=== PATIENT | female | born 1940 | race Caucasian/White ===

== ENCOUNTER 2023-12-30 14:19 | Observation (INO) | payer MEDICARE ==
[~2023-12-30] VITALS: Ht 147.3 cm; Wt 54.4 kg
[2023-12-30] MEDS ORDERED: PRAV80TA2 PO (14:39)
[2023-12-30] MEDS ORDERED: MONT10TA97 PO (14:39)
[2023-12-30] MEDS ORDERED: ESOM20CA2 PO (14:39)
[2023-12-30] MEDS ORDERED: LISI5TAB11 PO (14:39)
[2023-12-30] MEDS ORDERED: GABA-282 PO (14:39)
[2023-12-30] MEDS ORDERED: HYDR-3490 PO (14:39)
[2023-12-30] MEDS ORDERED: MELO15TA28 PO (14:39)
[2023-12-30] MEDS ORDERED: VERA240T64 PO (14:39)
[2023-12-30] MEDS ORDERED: GABA-1171 PO (14:39)
[2023-12-30] MEDS ORDERED: LEVO75TA4 PO (14:39)
[2023-12-30] MEDS ORDERED: BUDE10.7 INH (14:43)
[2023-12-30] MEDS: IPRATROPIUM 0.5MG/ALBUTEROL 2.5MG INH SOL UD 3ML (DUONEB) NEB ONE (15:34)
[2023-12-30] MEDS: NS 500 ML IV ONE (16:30)
[2023-12-30 16:32] LABS: BASO # 0.1 10^3/uL (0.0-0.2); BASO % 0.3 % (0.0-1.0); EOS # 0.1 10^3/uL (0.0-0.5); EOS % 0.7 % (0.0-3.0); HEMATOCRIT 34.6 % (36.0-47.0); HEMOGLOBIN 11.6 g/dl (12.0-15.5); LYMPH # 2.2 10^3/uL (1.5-5.0); LYMPH % 14.9 % (24.0-44.0); MEAN CORPUSCULAR HGB CONC 33.5 g/dl (32.0-36.5); MEAN CORPUSCULAR VOLUME 89.4 fl (80.0-96.0); MONO # 2.3 10^3/uL (0.0-0.8); MONO % 15.2 % (2.0-8.0); NEUTROPHILS # 10.1 10^3/uL (1.5-8.5); NEUTROPHILS % 67.8 % (36.0-66.0); PLATELET COUNT, AUTOMATED 807 10^3/uL (150-450); RED BLOOD COUNT 3.87 10^6/uL (4.00-5.40); WHITE BLOOD COUNT 14.9 10^3/uL (4.0-10.0)
[2023-12-30 16:57] LABS: CK-MB VALUE MASS < 1.0 NG/ML (<3.6)
[2023-12-30 16:58] LABS: CPK CREATINE PHOSPHOKINASE 48 U/L (34-145); MB/CK RELATIVE INDEX 2.08 (< OR =4)
[2023-12-30 16:59] LABS: ALKALINE PHOSPHATASE 44 U/L (46-116); ALT/SGPT 23 U/L (7.0-40); AST/SGOT 17 U/L (<34); BILIRUBIN,DIRECT 0.1 MG/DL (<0.4); BILIRUBIN,TOTAL 0.4 MG/DL (0.3-1.2); BLOOD UREA NITROGEN 29 MG/DL (9-23); CALCIUM LEVEL 9.7 MG/DL (8.3-10.6); CARBON DIOXIDE LEVEL 28 MMOL/L (20-31); CHLORIDE LEVEL 98 MMOL/L (98-107); CREATININE FOR GFR 1.37 MG/DL (0.55-1.30); GLOMERULAR FILTRATION RATE 39.3 (>32); GLUCOSE, FASTING 83 MG/DL (74-106); POTASSIUM SERUM 4.4 MMOL/L (3.5-5.1); SODIUM LEVEL 133 MMOL/L (136-145); TOTAL PROTEIN 5.8 G/DL (5.7-8.2)
[2023-12-30] MEDS ORDERED: ISOVUE-370 76% 100ML VIAL As Ordered ONE (17:33)
[2023-12-30] MEDS ORDERED: HYDR200T46 PO (23:07)
[2023-12-30] MEDS ORDERED: CALC500C16 PO (23:07)
[2023-12-30] MEDS ORDERED: ONETAB PO (23:07)
[2023-12-30] MEDS ORDERED: CYCL1DRO10 OU (23:07)
[2023-12-30] MEDS ORDERED: VITA250C5 PO (23:07)
[2023-12-30] MEDS ORDERED: CVS1CHW13 PO (23:07)
[2023-12-30] MEDS ORDERED: BIOT1CAP2 PO (23:07)
[2023-12-30] MEDS ORDERED: STOO100C30 PO (23:07)
[2023-12-30] MEDS ORDERED: PROBCAP14 PO (23:07)
[2023-12-30] MEDS ORDERED: ASPI81TA26 PO (23:07)
[2023-12-30] MEDS ORDERED: POLY17PO18 PO (23:07)
[2023-12-30] MEDS ORDERED: ALEN70TA82 PO (23:07)
[2023-12-30] MEDS ORDERED: HOME MED LIST COMPLETE! XX SCH (23:10)
[2023-12-31] MEDS ORDERED: ACETAMINOPHEN TAB 650MG DOSE (2X325MG) PO PRN (00:10)
[2023-12-31] MEDS ORDERED: ALBUTEROL SULFATE 2.5MG/0.5ML INH NEB SOLN NEB PRN (00:10)
[2023-12-31] MEDS ORDERED: MAALOX 30 ML SUSP *UDC PO PRN (00:10)
[2023-12-31] MEDS ORDERED: MOM 30ML SUSPENSION UDC PO PRN (00:10)
[2023-12-31] MEDS ORDERED: MIRALAX *UNIT DOSE* 17GM PACKET PO PRN (00:10)
[2023-12-31] MEDS ORDERED: PILL CUTTER 1 EACH XX PRN (00:35)
[2023-12-31 00:56] VITALS: BP 169/89; TEMP 97.3; O2SAT 94
[2023-12-31 00:56] LABS: PROCALCITONIN 0.08 ng/ml
[2023-12-31] MEDS: IPRATROPIUM 0.5MG/ALBUTEROL 2.5MG INH SOL UD 3ML (DUONEB) NEB SCH (01:55)
[2023-12-31] MEDS: LR 1,000 ML IV SCH (02:58)
[2023-12-31] MEDS: LEVOTHYROXINE 75MCG TABLET (0.075MG) PO SCH (05:26)
[2023-12-31 06:00] VITALS: BP 157/77; TEMP 97.4; O2SAT 97
[2023-12-31 07:29] LABS: INR 1.08; PARTIAL THROMBOPLASTIN TIME 27.2 SECONDS (24.8-34.2); PROTHROMBIN TIME 13.6 SECONDS (12.5-14.5)
[2023-12-31] MEDS: SYMBICORT 160/4.5MCG INHALER 6GM INH SCH (07:50)
[2023-12-31] MEDS: CALCIUM CARBONATE 500 MG CHEW U/D PO SCH (08:56)
[2023-12-31] MEDS: MELOXICAM (MOBIC) 7.5 MG TAB PO SCH (08:56)
[2023-12-31] MEDS: HYDROXYCHLOROQUINE 200 MG TAB PO SCH (08:56)
[2023-12-31] MEDS: DOCUSATE SODIUM 100MG CAPSULE PO SCH (08:56)
[2023-12-31] MEDS: PRAVASTATIN 20 MG TAB PO SCH (08:57)
[2023-12-31] MEDS: predniSONE 20 MG TAB PO SCH (08:57)
[2023-12-31] MEDS: MONTELUKAST 10 MG TAB PO SCH (08:57)
[2023-12-31] MEDS: ASPIRIN 81MG ENTERIC TABLET PO SCH (08:57)
[2023-12-31] MEDS: PANTOPRAZOLE 40MG TAB (PROTONIX) PO SCH (08:57)
[2023-12-31] MEDS: lisinopriL 5 MG TAB PO SCH (08:57)
[2023-12-31] MEDS: VERAPAMIL 120MG SR TAB PO SCH (08:58)
[2023-12-31] MEDS: HEPARIN SOD (PORCINE) 5000UNITS/ML 1ML VIAL/SYRINGE SC SCH (08:59)
[2023-12-31 09:00] VITALS: O2SAT 92
[2023-12-31] MEDS ORDERED: CYCLOSPORINE 0.05% OU SCH (09:00)
[2023-12-31 10:52] LABS: BASO # 0.1 10^3/uL (0.0-0.2); BASO % 0.7 % (0.0-1.0); EOS # 0.3 10^3/uL (0.0-0.5); EOS % 2.7 % (0.0-3.0); HEMATOCRIT 33.5 % (36.0-47.0); HEMOGLOBIN 11.4 g/dl (12.0-15.5); LYMPH % 20.5 % (24.0-44.0); MEAN CORPUSCULAR HEMOGLOBIN 30.5 pg (27.0-33.0); MEAN CORPUSCULAR VOLUME 89.6 fl (80.0-96.0); MONO # 1.5 10^3/uL (0.0-0.8); NEUTROPHILS # 5.8 10^3/uL (1.5-8.5); PLATELET COUNT, AUTOMATED 736 10^3/uL (150-450); RED BLOOD COUNT 3.74 10^6/uL (4.00-5.40); WHITE BLOOD COUNT 9.7 10^3/uL (4.0-10.0)
[2023-12-31 11:11] LABS: BLOOD UREA NITROGEN 20 MG/DL (9-23); CALCIUM LEVEL 9.2 MG/DL (8.3-10.6); CARBON DIOXIDE LEVEL 28 MMOL/L (20-31); CHLORIDE LEVEL 101 MMOL/L (98-107); CREATININE FOR GFR 0.86 MG/DL (0.55-1.30); GLOMERULAR FILTRATION RATE > 60.0 (>32); GLUCOSE, FASTING 82 MG/DL (74-106); MAGNESIUM LEVEL 1.9 MG/DL (1.8-2.4); POTASSIUM SERUM 4.7 MMOL/L (3.5-5.1); SODIUM LEVEL 135 MMOL/L (136-145)
[2023-12-31 14:00] VITALS: O2SAT 94
[2023-12-31 14:27] VITALS: BP 128/61; TEMP 98.2; O2SAT 92
[2023-12-31] MEDS: GABAPENTIN 400MG CAP PO SCH (20:30)
[2023-12-31] MEDS ORDERED: GABAPENTIN 300 MG CAP PO SCH (21:00)
[2023-12-31 21:44] VITALS: BP 122/56; TEMP 98.3; O2SAT 93
[2024-01-01 07:01] VITALS: BP 139/72; TEMP 98.1; O2SAT 98
[2024-01-01 09:00] VITALS: O2SAT 97
[2024-01-01 09:10] VITALS: BP 141/69
== END 2024-01-01 13:50 | disposition home or self-care (01) ==
LOC: M ED 14:19 → M ED INP 23:34 → M MS5PR 12-31 00:55
PROVIDERS: ADMIT Family Medicine; ATTEND Student in an Organized Health Care Education/Training Program
DX: N17.9 Acute kidney failure, unspecified (principal); D72.829 Elevated white blood cell count, unspecified; R65.10 Systemic inflammatory response syndrome (SIRS) of non-infectious origin without acute organ dysfunction; Z79.82 Long term (current) use of aspirin; Z79.899 Other long term (current) drug therapy; Z86.16 Personal history of COVID-19; Z88.0 Allergy status to penicillin; Z91.030 Bee allergy status
CPT/HCPCS: 36415; 71275; 80048; 80076; 81001; 82550; 82553; 83605; 83735; 83880; 84145; 84484; 85025; 85610; 85730; 87040; 87486; 87581; 87633; 87798; 93005; 93041; 94640; 94760; 96361; 96372; 96374; 97161; 97530; 99285; G0378; J7512; Q9967